=== PATIENT | male | born 1950 | race Caucasian/White ===

== ENCOUNTER → 2019-01-07 | Outpatient (CLI) | payer OTHER ==
[~2019-01-07] MED LIST: AMBIEN 10 MG TA10 MG PO; ATORVASTATIN CA40 MG PO; BAYER CHEWABLE81 MG PO; CELEXA20 MG PO; FENOFIBRATE160 MG PO; NORCO 5-325 TA1 EACH PO; OMEGA 3 1,0001 EACH PO; PRILOSEC 20 MG20 MG PO; SYMBICORT160 MCG/4. INH; TUDORZA PRESS400 MCG INH
== END ==
LOC: M.RAD 10:49
DX: J44.9 Chronic obstructive pulmonary disease, unspecified (principal); I10 Essential (primary) hypertension; M47.814 Spondylosis without myelopathy or radiculopathy, thoracic region; M25.78 Osteophyte, vertebrae